=== PATIENT | male | born 1980 | race Caucasian/White ===

== ENCOUNTER → 2023-02-09 10:11 | Outpatient (BNVA) | payer SELFPAY | PROVIDERS: Visit Provider Nurse Practitioner | DX: F32.A Depression, unspecified (principal); F41.9 Anxiety disorder, unspecified | CPT/HCPCS: 80053; 84443; 85025 ==

== ENCOUNTER 2023-06-02 13:01 | Inpatient (IN) | payer BC, SELFPAY ==
[2023-06-02 13:09] VITALS: BP 131/87; PULSE 74; RESP 16; TEMP 37.1; O2SAT 91; BMI 23.1
--- NOTE | 2023-06-02 13:18 | ECG_ITS ---
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 [id number]
--- NOTE | 2023-06-02 13:22 | ED.C_ITS ---
HPI - Psych 2 General: Chief Complaint: Psychiatric Symptoms Stated Complaint: SI Time Seen by Provider: 06/02/23 13:03 Source: patient Mode of arrival: ambulatory Limitations: no limitations History of Present Illness: 42-year-old male states he has been karen rely depressed states he is went through a recent break-up and he is wanting to just end it all and is actively suicidal he states that yesterday around noon he had taken a bottle for Tylenol PM and attempt to kill himself. States he did vomit once yesterday has had some slight chest pain denies any worsening improving factors Associated symptoms: Reports depression and suicidal ideation Review of Systems 2 Const: Denies: fever(s), chills, body aches or change in appetite ENMT: Denies: throat pain or dental pain Card: Denies: chest pain Resp: Denies: dyspnea GI: Denies: abdominal pain, nausea, vomiting or diarrhea Musc: Denies: neck pain or back pain Skin/Breast: Denies: rash Neuro: Denies: headache(s) Psych: Reports: depression and suicidal ideation PFSH ED 2 PFSH: Family History Father Heart disease Diabetes mellitus, type 2 Family/Other Breast cancer paternal aunt Grandfather Heart disease paternal Mother Psychiatric illness Other Atrial fibrillation Denies family history of Clotting disorder Chronic kidney disease (CKD) Thyroid disease Stroke Social History Smoking and tobacco/nicotine status: current every day tobacco/nicotine user cigarettes Quit status (tobacco/nicotine): has tried quititng Physical Exam 2 Const: COMMON NORMALS: no acute distress, patient oriented x3 and healthy appearing HENMT: COMMON NORMALS: normocephalic and atraumatic HEAD & SCALP: n ormocephalic and atraumatic Neck/C-Spine: COMMON NORMALS: full ROM and supple Chest: COMMONS NORMALS: normal inspection of the chest and normal palpation of entire chest wall Resp: COMMON NORMALS: normal respiratory effort, No retractions, No use of accessory muscles and clear to auscultation bilaterally AUSCULTATION: clear to auscultation bilaterally Cardio: COMMON NORMALS: regular rate, regular rhythm and No murmurs present (Cardio) RATE: regular rate RHYTHM: regular rhythm Extremity: COMMON NORMALS: normal to inspection and full ROM Neuro: COMMON NORMALS: patient oriented x3, moves all extremities and no focal motor deficits Psych: COMMON NORMALS: mental status grossly normal, Normal thought process present and cooperative MOOD & AFFECT: Yes depressed mood THOUGHT PROCESS: Normal thought process present THOUGHT CONTENT: Yes Suicidality present Skin: COMMON NORMALS: no rashes or lesions noted and no wounds GENERAL SKIN EXAM: no rashes or lesions noted Course 2 Vital Signs: Vital signs: Vital Signs Temperature 98.8 F 06/02/23 13:09 Pulse Rate 74 06/02/23 13:09 Respiratory Rate 16 06/02/23 13:09 Blood Pressure 131/87 06/02/23 13:09 Pulse Oximetry 91 06/02/23 13:09 Oxygen Delivery Me thod Room Air 06/02/23 13:09 MDM - Psych Medical Decision Making Patient presents here with suicidal ideations patient told differing stories about his possible Tylenol overdose Tylenol level here is negative no signs of him taking a lethal level he had some chest pain troponin here is negative no signs of ACS patient is on a 6-hour hold I spoke to psychiatrist and will admit at this time. Medical Records I reviewed the patient's medical records. Lab Data I reviewed the patient's lab results. 06/02/23 13:36 06/02/23 13:36 Laboratory Results WBC 10.40 10^3/uL (3.29-11.43) 06/02/23 13:36 RBC 5.15 10^6/uL (3.85-5.65) 06/02/23 13:36 Hgb 14.90 g/dL (11.27-16.99) 06/02/23 13:36 Hct 46.3 % (37-53) 06/02/23 13:36 MCV 89.9 fl (82-101) 06/02/23 13:36 MCH 28.9 pg (27-33) 06/02/23 13:36 MCHC 32.2 g/dL (30-55) 06/02/23 13:36 RDW 12.7 % (12.1-15.1) 06/02/23 13:36 Plt Count 313 10^3/cmm (157-399) 06/02/23 13:36 MPV 10.0 fL (7.4-10.4) 06/02/23 13:36 Neut % (Auto) 74.7 % 06/02/23 13:36 Lymph % (Auto) 18.0 % 06/02/23 13:36 Douglas % (Auto) 5.7 % 06/02/23 13:36 Eos % (Auto) 0.8 % 06/02/23 13:36 Baso % (Auto) 0.3 % 06/02/23 13:36 Neut # (Auto) 7.78 10^3/uL (1.8-7.7) H 06/02/23 13:36 Lymph # (Auto) 1.9 10^3/uL (0.8-4.8) 06/02/23 13:36 Douglas # (Auto) 0.6 10^3/uL (0.2-0.9) 06/02/23 13:36 Eos # (Auto) 0.1 10^3/uL (0.0-0.8) 06/02/23 13:36 Baso # (Auto) 0.0 10^3/uL (0.0-0.1) 06/02/23 13:36 Nucleated RBC % (auto) 0 % 06/02/23 13:36 Nucleated RBCs # 0.0 /100WBC 06/02/23 13:36 PT 13.40 SECONDS (12.1-14.9) 06/02/23 13:36 INR 0.99 (0.8-1.2) 06/02/23 13:36 Sodium 137 mmol/L (136-145) 06/02/23 13:36 Potassium 4.2 mmol/L (3.5-5.1) 06/02/23 13:36 Chloride 103 mmol/L (98-107) 06/02/23 13:36 Carbon Dioxide 22 mmol/L (22-29) 06/02/23 13:36 Anion Gap 16.2 (5-19) 06/02/23 13:36 BUN 17 mg/dL (6-20) 06/02/23 13:36 Creatinine 0.9 mg/dL (0.7-1.2) 06/02/23 13:36 GFR Calculation 93.0 mL/min (90-130) 06/02/23 13:36 Glucose 112 mg/dL (65-115) 06/02/23 13:36 Calculated Osmolality 286 mOsm/kg (285-295) 06/02/23 13:36 Calcium 8.9 mg/dL (8.5-10.5) 06/02/23 13:36 Total Bilirubin 0.3 mg/dL (0.15-1.2) 06/02/23 13:36 AST 25 U/L (0-40) 06/02/23 13:36 ALT 32 U/L (0-41) 06/02/23 13:36 Alkaline Phosphatase 85 U/L (40-130) 06/02/23 13:36 Troponin T Baseline < 6 ng/L (0-15) 06/02/23 13:36 Total Protein 8.0 g/dL (6.6-8.7) 06/02/23 13:36 Albumin 4.5 g/dL (3.5-5.2) 06/02/23 13:36 Globulin 3.5 g/dL (1.3-4.6) 06/02/23 13:36 Salicylates < 0.3 mg/dL (3-10) L 06/02/23 13:36 Urine Opiates Screen Negative ng/mL (Negative) 06/02/23 13:26 Acetaminophen < 5.0 ug/mL (10-30) L 06/02/23 13:36 Ur Barbiturates Screen Negative ng/mL (Negative) 06/02/23 13:26 Ur Phencyclidine Scrn Negative ng/mL (Negative) 06/02/23 13:26 Ur Amphetamines Screen Negative ng/mL (Negative) 06/02/23 13:26 U Benzodiazepines Scrn Negative ng/mL (Negative) 06/02/23 13:26 Urine Cocaine Screen Negative ng/mL (Negative) 06/02/23 13:26 U Marijuana (THC) Screen Negative ng/mL (Negative) 06/02/23 13:26 Ethyl Alcohol < 10 mg/dL (0-10) 06/02/23 13:36 No radiology studies performed this visit EKG Data EKG 1: I personally reviewed and interpreted this EKG as follows: EKG interpretation date: 06/02/23 EKG interpretation time: 13:18 Interpretation: nsr hr [address] or t wave abnormalities qrs 89 qtc 409 Discharge Plan Discharge Patient Disposition: Admitted As Inpatient Clinical Impression: Suicidal ideation Condition: Stable Prescriptions: No Action Tylenol PM Extra Strength 25-500 mg Tablet 60 tab PO .ONE TIME DOSE Remeron 30 mg tablet 30 mg PO BEDTIME Referrals: Yessy Morales FNP [Primary Care Provider] - Coding Level of Care Code ED Ged Instructor for Yuliana Ibarra
--- NOTE | 2023-06-02 13:30 | PC.PHAR ---
PT STATES HE ONLY TAKES REMERON 30MG HS-PT STATES ON 06/01/23 HE TOOK 60 TYLENOL PMS
--- NOTE | 2023-06-02 13:40 | XR_ITS ---
WS: [id number] Portable AP upright chest, 06/02/2023 Clinical Data: cp Comparison: None Findings: No nodules, masses or effusions are seen. The heart is normal. The pulmonary vascularity is not increased. No pneumonia or pneumothorax is seen. Impression: Negative chest.
--- NOTE | 2023-06-02 13:47 | PC.NURSE ---
96 hour hold rights read and reviewed with patient. Patient verbalized understandings. Copy of rights given to patient.
[2023-06-02 13:48] LABS: Basophils % 0.3 %; Eosinophils # 0.1 10^3/uL (0.0-0.8); Eosinophils % 0.8 %; Hematocrit 46.3 % (37-53); Lymphocytes # 1.9 10^3/uL (0.8-4.8); Mean Corpuscular HGB Conc 32.2 g/dL (30-55); Mean Corpuscular Hemoglobin 28.9 pg (27-33); Mean Corpuscular Volume 89.9 fl (82-101); Monocytes # 0.6 10^3/uL (0.2-0.9); Monocytes % 5.7 %; Neutrophils # 7.78 10^3/uL (1.8-7.7); Neutrophils % 74.7 %; Nucleated Red Blood Cells % 0 %; Platelet Count 313 10^3/cmm (157-399); Red Blood Count 5.15 10^6/uL (3.85-5.65); Red Cell Distribution Width 12.7 % (12.1-15.1)
[2023-06-02 13:59] LABS: Amphetamines Screen Urine Negative (Negative); Barbiturates Screen Urine Negative (Negative); Benzodiazepines Screen Urine Negative (Negative); Cocaine Screen Urine Negative (Negative); Opiate Screen Urine Negative (Negative); PCP Screen Urine Negative (Negative); THC Screen Urine Negative (Negative)
[2023-06-02 14:08] LABS: INR 0.99 (0.8-1.2)
[2023-06-02 14:17] LABS: Alanine Aminotransferase 32 U/L (0-41); Albumin Level 4.5 g/dL (3.5-5.2); Alkaline Phosphatase 85 U/L (40-130); Anion Gap 16.2 (5-19); Aspartate Amino Transferase 25 U/L (0-40); Blood Urea Nitrogen 17 mg/dL (6-20); Calcium 8.9 mg/dL (8.5-10.5); Carbon Dioxide 22 mmol/L (22-29); Chloride 103 mmol/L (98-107); Creatinine Clr Calc Pharmacy 142.7164; Globulin 3.5 g/dL (1.3-4.6); Glucose 112 mg/dL (65-115); Osmolality Calculated 286 mOsm/kg (285-295); Potassium 4.2 mmol/L (3.5-5.1); Sodium 137 mmol/L (136-145); Total Bilirubin 0.3 mg/dL (0.15-1.2); Troponin(5th) Baseline < 6 ng/L (0-15)
[2023-06-02 14:20] LABS: Acetaminophen < 5.0 ug/mL (10-30); Alcohol Level < 10 mg/dL (0-10); Salicylate < 0.3 mg/dL (3-10)
[2023-06-02 15:57] VITALS: BP 149/102; PULSE 93; RESP 18; TEMP 36.8; O2SAT 99
[2023-06-02 16:03] VITALS: RESP 16; O2SAT 100
[2023-06-02 16:16] LABS: Troponin 5 2HR 7.06 ng/L (0-15); Troponin 5 2HR Delta 1.06001 ABS# (0-10)
[2023-06-02] MEDS: hyDROXYzine 25 mg Capsule 50 MG PO (16:17)
[2023-06-02] MEDS: nicotine 2 mg Gum BUCCAL ×2 (16:17→20:26)
--- NOTE | 2023-06-02 17:46 | PC.NURSE ---
Patient states he has been feeling depressed, suicidal, and paranoid since January and just can't go on living that way anymore. He states he has been taking tylenol PM excessively and recognized he was not wanting to live anymore and wanted to come get help before he did anything else. He listed several stressors since 2019 including his father passing away unexpectedly, 2 grandmothers passing, and a 4 year relationship with his girlfriend ending. He also endorses vh, reportedly seeing things coming out of the wall. However, he says he knows they aren't real. Patient stated he lives at a [facility] in [place] and that they all are very helpful, but that sometimes it can feel overwhelming. In the past he has went to a therapist in [place], [place], but it was over 10 years ago. He was also hospitalized over 10 years ago in [place], [place] and [place], [place]. Patient says he has a history of alcohol and drug abuse. He last drank on August 01, 2022 and says he had relapsed and received DWIs due to it. Patient says his primary reason for living are his 3 children, all 3 boys. However, he says he often feels they'd be better off without him. Patient also states he has a job at [employer] at this time and also takes Remeron 30mg, but feels it has been ineffective thus far. Very tearful throughout assessment.
[2023-06-02] MEDS: LORazepam 1 mg Tablet PO (18:31)
[2023-06-02] MEDS: acetaminophen 325 mg Tablet 650 MG PO (20:25)
[2023-06-02] MEDS: OLANZapine 5 mg ODT PO (20:26)
[2023-06-02] MEDS: trazodone 50 mg Tablet PO (20:26)
[2023-06-02 20:43] VITALS: BP 123/83; PULSE 89; RESP 18; TEMP 36.9; O2SAT 95
[2023-06-02 21:32] LABS: Troponin 5 6HR 9.12 ng/L (0-15); Troponin 5 6HR Delta 3.12001 ng/L (0-12)
[2023-06-03 06:00] VITALS: BP 109/63; PULSE 81; RESP 16; TEMP 37; O2SAT 98
--- NOTE | 2023-06-03 06:22 | PC.NURSE ---
PT RECEIVED TRAZODONE 50 MG FORR INSOMNIA AND ZYDIS 5 MG FOR INCREASED REPORTS OF ANXIETY AND PANIC FEELING. MEDICATIONS DEEMED EFFECTIVE PT WAS ABLE TO REST AND SLEPT APPROXIMATELY 8-9 HOURS THIS SHIFT.
[2023-06-03] MEDS: hyDROXYzine 25 mg Capsule 50 MG PO ×2 (10:27→18:29)
[2023-06-03] MEDS: OLANZapine 5 mg ODT PO ×2 (10:54→17:22)
[2023-06-03] MEDS: nicotine 2 mg Gum BUCCAL ×3 (10:55→19:04)
--- NOTE | 2023-06-03 13:17 | PC.NURSE ---
At 1027, patient states he feels anxious and sad. States he is depressed, he doesn't want to hurt himself, but doesn't care if he live any longer. Does contract for safety on the unit. Vistaril 50mg given PO. At around 1100, patient continues pacing and is almost tearful, states he just feels awful and doesn't know how to manage his feelings. Zyperxa given at this time. At 1130, patient appears calmer and is no longer pacing. Patient talking with other patients. At 1320, patient resting in bed with eyes closed.
[2023-06-03 14:00] VITALS: BP 116/68; PULSE 89; RESP 20; TEMP 36.8; O2SAT 98
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
[2023-06-03] MEDS: fluoxetine 20 mg Capsule PO (14:33)
[2023-06-03] MEDS: trazodone 50 mg Tablet PO (20:18)
[2023-06-03 20:25] VITALS: BP 127/72; PULSE 83; RESP 18; TEMP 36.6; O2SAT 99
[2023-06-04 06:00] VITALS: BP 115/73; PULSE 74; RESP 16; TEMP 36.8; O2SAT 98
[2023-06-04] MEDS: nicotine 21 mg Patch 1 PATCH TRANSDERMA (10:14)
[2023-06-04] MEDS: fluoxetine 20 mg Capsule PO (10:14)
[2023-06-04] MEDS: hyDROXYzine 25 mg Capsule 50 MG PO ×2 (11:36→17:38)
--- NOTE | 2023-06-04 13:11 | P.NPUPN_ITS ---
Subjective NPU 2 Subjective: 42-year-old male with a history of major depressive disorder admitted with severe depression and an overdose on Tylenol with suicidal intent. Patient reported continued depression. He had reported that he had slept better when receiving trazodone and reported continued feelings of hopelessness. He had reported that he continued to feel sad and reported that he continued to think about his children. Patient was less isolative on the milieu today. He denied any psychosis did not endorse any manic symptoms. He reported no worsening mood with the absence of mirtazapine at this time. He continued to report diminished appetite. Mental Status Exam 2 MSE Comments: Patient is a very tall male who appeared his stated age who appeared cooperative but extremely dysphoric on interview. He was alert and oriented to person place and time. There was prominent psychomotor retardation. His speech was monotone in quality and normal in productivity and rate. His mood was endorsed as depressed. His affect was restricted in range. He endorsed suicidal ideation with the plan to overdose on meds. He denied any homicidal ideation. He did not appear to be responding internal stimuli. There was no evidence of delusional thinking. He was alert and oriented to person place time and situation. His attention span appeared intact. His insight was limited. His judgment is poor. His impulse control appeared poor. His recent and remote memory appeared grossly intact. Vitals/I&O/Wt Last Vital Signs Temp 98.2 F 06/04/23 06:00 Pulse 74 06/04/23 06:00 Resp 16 06/04/23 06:00 BP 115/73 06/04/23 06:00 Pulse Ox 98 06/04/23 06:00 O2 Del Method Room Air 06/04/23 06:00 Weight last 48 hrs Weight 95.708 kg Data NPU 06/02/23 13:36 06/02/23 13:36 A&P Assessment and plan (1) MDD (major depressive disorder), recurrent severe, without psychosis: (2) Panic attacks: Plan 42-year-old male admitted after an overdose on Tylenol with current suicidal ideation currently on a 96-hour hold with severe depression. Patient would likely benefit from acute psychiatric treatment at this time. 1. ?Encourage individual, group and milieu therapy. 2. Recommend sober living treatment at the highest level of care to which the patient is willing to commit. 3. Continue q-15 minute checks for safety 4. Continue prozac 20mg daily, add trazodone 50mg at night routinely. 5. Will attempt to gather collateral information. Involuntary Hold Information 2 96 Hour Hold: 96 Hour Involuntary Admission: Yes 96 Hour Hold Ending Date: 06/08/23 96 Hour Hold Ending Time: 13:13 Attestations NPU 2 Medical Necessity Statement*: Inpatient hospitalization is medically necessary and deemed to be the clinically appropriate intervention at this time.? Medications will be initiated and adjusted as clinically indicated.? The patient?s likely length of stay is 5-7 days.? Coding Level of Care Code Acute Code for Chg Fwd Diagnoses MDD (major depressive disorder), recurrent severe, without psychosis F33.2 Panic attacks F41.0
[2023-06-04 14:00] VITALS: BP 147/82; PULSE 91; RESP 20; TEMP 36.6; O2SAT 99
[2023-06-04] MEDS: OLANZapine 5 mg ODT PO (15:46)
[2023-06-04] MEDS: LORazepam 1 mg Tablet PO (16:56)
[2023-06-04 20:31] VITALS: BP 125/81; PULSE 88; RESP 18; TEMP 36.4; O2SAT 99
[2023-06-04] MEDS: trazodone 50 mg Tablet PO (21:46)
[2023-06-05 06:00] VITALS: BP 136/74; PULSE 83; RESP 16; TEMP 36.4; O2SAT 98
[2023-06-05] MEDS: fluoxetine 20 mg Capsule PO (09:10)
[2023-06-05] MEDS: hyDROXYzine 25 mg Capsule 50 MG PO ×2 (09:13→17:16)
[2023-06-05] MEDS: OLANZapine 5 mg ODT PO ×2 (10:07→20:15)
[2023-06-05 14:00] VITALS: BP 110/62; PULSE 70; RESP 16; TEMP 36.7; O2SAT 96
[2023-06-05] MEDS: nicotine 2 mg Gum BUCCAL (16:07)
--- NOTE | 2023-06-05 16:33 | P.NPUPN_ITS ---
Subjective NPU 2 Subjective: 42-year-old male with a history of major depressive disorder admitted with severe depression and an overdose on Tylenol with suicidal intent. The patient had reported that his ears were ringing. He had reported that he had had these problems in the past at home to and that it was not completely related to the Prozac that he had started. He continued to report that he missed his sons and stated that he felt extremely depressed. He continued to report feeling hopeless and continued to report having anxiety attacks. He remained somewhat tearful and isolative on the milieu. He denied any manic symptoms. He denied any psychotic symptoms. Patient continued to report that he felt better off being . For Mental Status Exam 2 MSE Comments: Patient is a very tall male who appeared his stated age who appeared cooperative and tearful throughout the interview. He was alert and oriented to person place and time. There was prominent psychomotor retardation. His speech was monotone in quality and normal in productivity and rate. His mood remained depressed. His affect was restricted in range. He endorsed suicidal ideation with the plan to overdose on meds. He denied any homicidal ideation. He did not appear to be responding internal stimuli. There was no evidence of delusional thinking. He was alert and oriented to person place time and situation. His attention span appeared intact. His insight was limited. His judgment is poor. His impulse control appeared poor. His recent and remote memory appeared grossly intact. Vitals/I&O/Wt Last Vital Signs Temp 98.1 F 06/05/23 14:00 Pulse 70 06/05/23 14:00 Resp 16 06/05/23 14:00 BP 110/62 06/05/23 14:00 Pulse Ox 96 06/05/23 14:00 O2 Del Method Room Air 06/05/23 06:00 Weight last 48 hrs Weight 95.708 kg Data NPU 06/02/23 13:36 06/02/23 13:36 A&P Assessment and plan (1) MDD (major depressive disorder), recurrent severe, without psychosis: (2) Panic attacks: Plan 42-year-old male admitted after an overdose on Tylenol with current suicidal ideation currently on a 96-hour hold with severe depression. Patient would likely benefit from acute psychiatric treatment at this time. 1. ?Encourage individual, group and milieu therapy. 2. Recommend sober living treatment at the highest level of care to which the patient is willing to commit. 3. Continue q-15 minute checks for safety 4. Continue prozac 20mg daily, Continue trazodone 50mg at night routinely. 5. Will attempt to gather collateral information. Continue to monitor for tinnitus. Involuntary Hold Information 2 96 Hour Hold: 96 Hour Involuntary Admission: Yes 96 Hour Hold Ending Date: 06/08/23 96 Hour Hold Ending Time: 13:13 Attestations NPU 2 Medical Necessity Statement*: Inpatient hospitalization is medically necessary and deemed to be the clinically appropriate intervention at this time.? Medications will be initiated and adjusted as clinically indicated.? The patient?s likely length of stay is 5-7 days.? Coding Level of Care Code Acute Code for [facility] Fwd Diagnoses MDD (major depressive disorder), recurrent severe, without psychosis F33.2 Panic attacks F41.0
[2023-06-05 20:15] VITALS: BP 148/85; PULSE 83; RESP 18; TEMP 36.5; O2SAT 98
[2023-06-05] MEDS: trazodone 50 mg Tablet PO (20:15)
[2023-06-06 06:00] VITALS: BP 124/74; PULSE 67; RESP 16; TEMP 35.7; O2SAT 98
--- NOTE | 2023-06-06 06:32 | PC.NURSE ---
PT WAS GIVEN ZYDIS 5 MG FOR COMPLAINTS OF INCREASED ANXIETY AND TRAZODONE 50 MG FOR INSOMNIA EARLIER IN THE SHIFT REQUESTED. MEDICATIONS DEEMED EFFECTIVE AT THIS TIME. PT HAS HAD NO OTHER COMPLAINTS OF ANXIETY AND HAS SLEPT APPROXIMATELY 9-10 HOURS THIS SHIFT. PT CURRENTLY RESTING WITH EYES CLOSED. SUPPORT VOICED.
[2023-06-06] MEDS: fluoxetine 20 mg Capsule PO (10:41)
[2023-06-06] MEDS: nicotine 2 mg Gum BUCCAL ×3 (11:08→19:34)
[2023-06-06] MEDS: OLANZapine 5 mg ODT PO ×2 (11:38→18:22)
[2023-06-06 14:00] VITALS: BP 127/79; PULSE 84; RESP 16; TEMP 36.3; O2SAT 96
[2023-06-06] MEDS: ibuprofen 600 mg Tablet PO (16:08)
--- NOTE | 2023-06-06 16:31 | P.NPUPN_ITS ---
Subjective NPU 2 Subjective: 42-year-old male with a history of major depressive disorder admitted with severe depression and an overdose on Tylenol with suicidal intent. He continued to appear tearful on the milieu. He had reported that the ringing in his ears was constant. He had requested to be tried on a different medication as he had expressed some fear that Prozac may have been causing him this problem. Patient continued to endorse feelings of hopelessness. He had continued to report feeling sad and stated that he missed his children. He continued to state that he wanting to kill himself. He had reported having frequent problems with anxiety attacks here and at home. Patient was able to attend groups. Mental Status Exam 2 MSE Comments: Patient is a very tall male who appeared his stated age who appeared cooperative and tearful throughout the interview. He was alert and oriented to person place and time. There was prominent psychomotor retardation. His speech was monotone in quality and normal in productivity and rate. His mood remained depressed. His affect was restricted in range. He endorsed suicidal ideation with no plan illicited. He denied any homicidal ideation. He did not appear to be responding internal stimuli. There was no evidence of delusional thinking. He was alert and oriented to person, place, time and situation. His attention span appeared intact. His insight was limited. His judgment is poor. His impulse control appeared poor. His recent and remote memory appeared grossly intact. Vitals/I&O/Wt Last Vital Signs Temp 97.3 F L 06/06/23 14:00 Pulse 84 06/06/23 14:00 Resp 16 06/06/23 14:00 BP 127/79 06/06/23 14:00 Pulse Ox 96 06/06/23 14:00 O2 Del Method Room Air 06/06/23 14:00 Data NPU 06/02/23 13:36 06/02/23 13:36 A&P Assessment and plan (1) MDD (major depressive disorder), recurrent severe, without psychosis: (2) Panic attacks: Plan 42-year-old male admitted after an overdose on Tylenol with current suicidal ideation currently on a 96-hour hold with severe depression. Patient would likely benefit from acute psychiatric treatment at this time. 1. ?Encourage individual, group and milieu therapy. 2. Recommend sober living treatment at the highest level of care to which the patient is willing to commit. 3. Continue q-15 minute checks for safety 4. Discontinue Prozac today. Trial of cymbalta 30mg daily. Monitor for tinnitus. 5. Will attempt to gather collateral information. Involuntary Hold Information 2 96 Hour Hold: 96 Hour Involuntary Admission: Yes 96 Hour Hold Ending Date: 06/08/23 96 Hour Hold Ending Time: 13:13 Attestations NPU 2 Medical Necessity Statement*: Inpatient hospitalization is medically necessary and deemed to be the clinically appropriate intervention at this time.? Medications will be initiated and adjusted as clinically indicated.? The patient?s likely length of stay is 5-7 days.? Coding Level of Care Code Acute Code for g Fwd Diagnoses MDD (major depressive disorder), recurrent severe, without psychosis F33.2 Panic attacks F41.0
[2023-06-06 20:10] VITALS: BP 138/79; PULSE 77; RESP 18; TEMP 36.4; O2SAT 99
[2023-06-06] MEDS: trazodone 50 mg Tablet PO (20:15)
[2023-06-07 06:00] VITALS: BP 120/75; PULSE 83; RESP 15; TEMP 36.5; O2SAT 98
[2023-06-07] MEDS: duloxetine 30 mg Capsule PO (09:11)
[2023-06-07] MEDS: nicotine 2 mg Gum BUCCAL ×4 (09:11→18:12)
[2023-06-07] MEDS: hyDROXYzine 25 mg Capsule 50 MG PO (09:11)
[2023-06-07] MEDS: OLANZapine 5 mg ODT PO (12:12)
--- NOTE | 2023-06-07 12:13 | PC.NURSE ---
Patient visibly anxious, administered zyprexa 5mg ODT
[2023-06-07 14:00] VITALS: BP 129/84; PULSE 82; RESP 20; TEMP 36.6; O2SAT 97
--- NOTE | 2023-06-07 16:29 | W.PM.NPUPNS ---
Subjective NPU Subjective: 42-year-old male with a history of major depressive disorder admitted with severe depression and an overdose on Tylenol with suicidal intent. Patient continued endorse depression. He had continued to isolate himself on the milieu but was able to attend groups briefly. He had reported significant panic attacks. He had continued to report ringing in his years but stated that it had been better since last night. He had been agreeable to stopping Prozac and beginning Cymbalta to target depression. He had continued to report that he missed his family. He had stated that he had no cravings for alcohol and had reported compliance with the rules at the [address] in [place] but stated that he was hopeful that he would be closer to his children who were in [place]. Mental Status Exam MSE Comments: Patient is a very tall male who appeared his stated age who appeared cooperative and continued to be tearful throughout the interview. He was alert and oriented to person place and time. There was prominent psychomotor retardation. His speech was monotone in quality and normal in productivity and rate. His mood remained depressed. His affect remained flat. He endorsed suicidal ideation with no plan illicited. He denied any homicidal ideation. He did not appear to be responding internal stimuli. There was no evidence of delusional thinking. He was alert and oriented to person, place, time and situation. His attention span appeared intact. His insight was limited. His judgment is poor. His impulse control appeared poor. His recent and remote memory appeared grossly intact. Vitals/I&O/Wt Last Vital Signs Temp 97.7 F 06/07/23 06:00 Pulse 83 06/07/23 06:00 Resp 15 06/07/23 06:00 BP 120/75 06/07/23 06:00 Pulse Ox 98 06/07/23 06:00 O2 Del Method Room Air 06/06/23 20:10 Data NPU 06/02/23 13:36 06/02/23 13:36 A&P Assessment and plan (1) MDD (major depressive disorder), recurrent severe, without psychosis: (2) Panic attacks: Plan 42-year-old male admitted after an overdose on Tylenol with current suicidal ideation currently on a 96-hour hold with severe depression. Patient would likely benefit from acute psychiatric treatment at this time. 1. ?Encourage individual, group and milieu therapy. 2. Recommend sober living treatment at the highest level of care to which the patient is willing to commit. 3. Continue q-15 minute checks for safety 4. Cymbalta 30mg daily for depression and anxiety. 5. Will attempt to gather collateral information. 6. 21 day hold filed. Involuntary Hold Information 96 Hour Hold: 96 Hour Involuntary Admission: Yes 96 Hour Hold Ending Date: 06/08/23 96 Hour Hold Ending Time: 13:13 Attestations NPU Medical Necessity Statement*: Inpatient hospitalization is medically necessary and deemed to be the clinically appropriate intervention at this time.? Medications will be initiated and adjusted as clinically indicated.? The patient?s likely length of stay is 5-7 days.? Coding Level of Care Code Acute Code for [facility] Fwd Diagnoses MDD (major depressive disorder), recurrent severe, without psychosis F33.2 Panic attacks F41.0
[2023-06-07] MEDS: haloperidol 5 mg Tablet PO ×2 (16:40→21:05)
--- NOTE | 2023-06-07 17:06 | PC.NURSE ---
Administered Haldol 5mg PO to patient for irrational thoughts of not wanting to be alive any more. Patient reports that he would typically sit with the thoughts and have the urge to bang his head into a wall but decided to tell staff. Patient stated that asking for help is new to him.
[2023-06-07] MEDS: trazodone 50 mg Tablet PO (21:05)
[2023-06-07 21:23] VITALS: BP 121/77; PULSE 80; RESP 18; TEMP 36.6; O2SAT 98
[2023-06-08 06:00] VITALS: BP 108/71; PULSE 73; RESP 17; TEMP 36.7; O2SAT 97
[2023-06-08] MEDS: duloxetine 30 mg Capsule PO (08:56)
[2023-06-08] MEDS: nicotine 2 mg Gum BUCCAL ×2 (08:56→15:56)
--- NOTE | 2023-06-08 09:13 | PC.NURSE ---
During nursing shift assessment, patient stated that he slept well, but that he had weird dreams. Patient states that the haldol is working well for him in decreasing thoughts of no longer wanting to live. Currently denies SI, STEVEN, AVH. Patient cooperative.
--- NOTE | 2023-06-08 12:18 | PC.NURSE ---
Patient was served paperwork for court on 06/09/23 for 21 day hold. Patient handled this well. Patient denied any questions.
[2023-06-08 14:00] VITALS: RESP 16
[2023-06-08] MEDS: haloperidol 5 mg Tablet PO ×2 (15:56→21:07)
--- NOTE | 2023-06-08 16:18 | W.PM.NPUPNS ---
Subjective NPU Subjective: Patient presented today reporting that he is doing okay. We discussed the 21-day hold hearing tomorrow and how that works. We discussed not feeling there was a need for a significant extension and that we would discharge him as soon as it was appropriate. He reports that he believes he can [facility] [employer] [facility] and he denied side effects to the medication. We discussed a plan to meet about the hearing again tomorrow and decide how to proceed. Mental Status Exam MSE Comments: This is a tall well-nourished well-developed white male in hospital scrubs with limited grooming but appropriate eye contact. No abnormal movements except for psychomotor retardation. Cooperative with exam in mild distress. Speech was normal rate and volume. Mood described as a little better, affect slightly subdued. Thought process was more organized. Thought content: Patient reported resolving suicidal but denied homicidal ideation, there were no delusions reported or noted, he denied any auditory or visual hallucinations. Attention and concentration appear to be improving and memory appeared reliable but none were formally tested. He was alert and oriented x 3. Insight and judgment were limited impulse control poor. Vitals/I&O/Wt Last Vital Signs Temp 98.1 F 06/08/23 06:00 Pulse 73 06/08/23 06:00 Resp 17 06/08/23 06:00 BP 108/71 06/08/23 06:00 Pulse Ox 97 06/08/23 06:00 O2 Del Method Room Air 06/08/23 06:00 Data NPU 06/02/23 13:36 06/02/23 13:36 A&P Assessment and plan (1) MDD (major depressive disorder), recurrent severe, without psychosis: (2) Panic attacks: Plan 42-year-old male admitted after an overdose on Tylenol with current suicidal ideation currently on a 96-hour hold with severe depression. Patient would likely benefit from acute psychiatric treatment at this time. 1. ?Encourage individual, group and milieu therapy. 2. Recommend sober living treatment at the highest level of care to which the patient is willing to commit. 3. Continue q-15 minute checks for safety 4. Cymbalta 30mg daily for depression and anxiety. 5. Will attempt to gather collateral information. 6. 21 day hold filed. Hearing tomorrow @1400. Involuntary Hold Information 96 Hour Hold: 96 Hour Involuntary Admission: Yes 96 Hour Hold Ending Date: 06/08/23 96 Hour Hold Ending Time: 13:13 Attestations NPU Medical Necessity Statement*: Inpatient hospitalization is medically necessary and the clinically appropriate intervention at this time.? Medications will be initiated and adjusted as clinically indicated.? The patient?s likely length of stay is 4-6 days.? Coding Level of Care Code Acute Code for g Fwd Diagnoses MDD (major depressive disorder), recurrent severe, without psychosis F33.2 Panic attacks F41.0
[2023-06-08] MEDS: trazodone 50 mg Tablet PO (21:07)
[2023-06-08 21:17] VITALS: BP 116/71; PULSE 85; RESP 16; TEMP 36.2; O2SAT 98
--- NOTE | 2023-06-08 22:54 | PC.NURSE ---
IIN BED RESTING AROUSES TO VOICE. DENIES PAIN. DENIES SI/H AND AVH AT THIS TIME. RATES ANXIETY AND DEPRESSION 09/24. REQUESTS MEDS FOR ANXIETY AND SLEEP. PT INFORMED THIS RN THAT HE ONLY WANTS TO TAKE HALDOL BECAUSE THAT'S WHAT IS WORKING FOR ME NOW. PT WAS GIVEN TRAZODONE 50 MG ORDERED FOR INSOMNIA AND HALDOL 5 MG ORDERED FOR INCREASED ANXIETY. ALL QUESTIONS WERE ANSWERED AND SUPPORT WAS VOICED.
[2023-06-09 06:00] VITALS: RESP 16
--- NOTE | 2023-06-09 06:35 | PC.NURSE ---
Did not obtain vitals. RR documented. CN notified.
--- NOTE | 2023-06-09 06:38 | PC.NURSE ---
PT RECEIVED PRN MEDICATIONS THIS SHIFT. PT WAS GIVEN TRAZODONE FOR INSOMNIA AND HALDOL FOR INCREASED ANXIETY. PT WAS ABLE TO REST AND SLEPT APPROXIMATELY 9-10 HOUR THIS SHIFT. PT HAD NO OTHER COMPLAINTS OF ANXIETY THROUGH OUT THE NIGHT. MEDICATIONS ARE DEEMED EFFECTIVE. PT CONTINUES TO REST WITH EYES CLOSED WITH NO DISTRESS NOTED AT THIS TIME.
[2023-06-09] MEDS: duloxetine 30 mg Capsule PO (08:56)
[2023-06-09 14:00] VITALS: BP 130/76; PULSE 87; RESP 16; TEMP 36.5; O2SAT 97
[2023-06-09] MEDS: nicotine 2 mg Gum BUCCAL ×3 (15:04→20:19)
[2023-06-09] MEDS: hyDROXYzine 25 mg Capsule 50 MG PO (15:04)
--- NOTE | 2023-06-09 15:56 | W.PM.NPUPNS ---
Subjective NPU Subjective: Patient presented today reporting that he was feeling a little better. He did not contest the 21-day hold and did not go to the hearing. We discussed his thought that it is possible that the Remeron that he was taking contributed to those thoughts he was having. He reports that he felt like when the medications were switched that a cloud lifted and he just very quickly felt much better. We discussed a plan to evaluate him for few days now that he is reporting a resolution of his suicidal thoughts and a likely plan for discharge at the beginning of the week. Mental Status Exam MSE Comments: This is a tall well-nourished well-developed white male in hospital scrubs with limited grooming but appropriate eye contact. No abnormal movements except for mild psychomotor retardation. Cooperative with exam in mild distress. Speech was normal rate and volume. Mood described as a little better, affect slightly subdued. Thought process was more organized. Thought content: Patient denied suicidal or homicidal ideation, there were no delusions reported or noted, he denied any auditory or visual hallucinations. Attention and concentration appear to be improving and memory appeared reliable but none were formally tested. He was alert and oriented x 3. Insight and judgment were limited impulse control poor. Vitals/I&O/Wt Last Vital Signs Temp 97.7 F 06/09/23 14:00 Pulse 87 06/09/23 14:00 Resp 16 06/09/23 14:00 BP 130/76 06/09/23 14:00 Pulse Ox 97 06/09/23 14:00 O2 Del Method Room Air 06/08/23 21:17 Data NPU 06/02/23 13:36 06/02/23 13:36 A&P Assessment and plan (1) MDD (major depressive disorder), recurrent severe, without psychosis: (2) Panic attacks: Plan 42-year-old male admitted after an overdose on Tylenol with current suicidal ideation currently on a 96-hour hold with severe depression. Patient would likely benefit from acute psychiatric treatment at this time. 1. ?Encourage individual, group and milieu therapy. 2. Recommend sober living treatment at the highest level of care to which the patient is willing to commit. 3. Continue q-15 minute checks for safety 4. Cymbalta 30mg daily for depression and anxiety. 5. Will attempt to gather collateral information. 6. 21 day hold filed. Hold granted today 06/09/2023. Involuntary Hold Information 96 Hour Hold: 96 Hour Involuntary Admission: Yes 96 Hour Hold Ending Date: 06/08/23 96 Hour Hold Ending Time: 13:13 Attestations NPU Medical Necessity Statement*: Inpatient hospitalization is medically necessary and the clinically appropriate intervention at this time.? Medications will be initiated and adjusted as clinically indicated.? The patient?s likely length of stay is 3-5 days.? Coding Level of Care Code Acute Code for [facility] Fwd Diagnoses MDD (major depressive disorder), recurrent severe, without psychosis F33.2 Panic attacks F41.0
[2023-06-09] MEDS: haloperidol 5 mg Tablet PO (20:19)
[2023-06-09] MEDS: trazodone 50 mg Tablet PO (20:19)
[2023-06-09 20:43] VITALS: BP 131/77; PULSE 75; RESP 18; TEMP 36.8; O2SAT 98
--- NOTE | 2023-06-10 04:51 | PC.NURSE ---
PT RECEIVED PRN MEDIATIONS THIS SHIFT FOR INCREASED ANXIETY AND INSOMNIA. PT WAS GIVEN TRAZODONE 50 MG AND HALDOL 5 MG. PT STATES THE HALDOL IS THE ONLY THAT WORKS FOR ME, SO PLEASE JUST GIVE ME THAT. MEDICATIONS DEEMED EFFECTIVE. PT WAS ABLE TO REST AND HAS HAD NO OTHER COMPLAINTS OF ANXIETY. PT HAS SLEPT APPROXIMATELY 8-9 HOURS THIS SHIFT. SUPPORT VOICED.
[2023-06-10 06:00] VITALS: BP 110/61; PULSE 59; RESP 18; TEMP 36.4; O2SAT 95
[2023-06-10] MEDS: duloxetine 30 mg Capsule PO (08:28)
[2023-06-10] MEDS: hyDROXYzine 25 mg Capsule 50 MG PO (10:54)
[2023-06-10] MEDS: nicotine 2 mg Gum BUCCAL ×4 (13:56→20:17)
[2023-06-10 14:00] VITALS: BP 120/73; PULSE 75; RESP 16; TEMP 36.5; O2SAT 96
--- NOTE | 2023-06-10 17:52 | W.PM.NPUPNS ---
Subjective NPU Subjective: Patient presented today reporting that he was feeling better each day. He reports that he is looking forward to returning to [facility] on Monday. We discussed him getting his medication before he leaves so there will be no problems. He was happy about the discharge and less than 48 hours and he denied any side effects to his medications. Mental Status Exam MSE Comments: This is a tall well-nourished well-developed white male in hospital scrubs with limited grooming but appropriate eye contact. No abnormal movements except for mild psychomotor retardation. Cooperative with exam in mild distress. Speech was normal rate and volume. Mood described as better, affect slightly subdued. Thought process was more organized. Thought content: Patient denied suicidal or homicidal ideation, there were no delusions reported or noted, he denied any auditory or visual hallucinations. Attention and concentration appear to be improving and memory appeared reliable but none were formally tested. He was alert and oriented x 3. Insight and judgment were limited impulse control poor. Vitals/I&O/Wt Last Vital Signs Temp 97.7 F 06/10/23 14:00 Pulse 75 06/10/23 14:00 Resp 16 06/10/23 14:00 BP 120/73 06/10/23 14:00 Pulse Ox 96 06/10/23 14:00 O2 Del Method Room Air 06/10/23 06:00 Data NPU 06/02/23 13:36 06/02/23 13:36 A&P Assessment and plan (1) MDD (major depressive disorder), recurrent severe, without psychosis: (2) Panic attacks: Plan 42-year-old male admitted after an overdose on Tylenol with current suicidal ideation currently on a 96-hour hold with severe depression. Patient would likely benefit from acute psychiatric treatment at this time. 1. ?Encourage individual, group and milieu therapy. 2. Recommend sober living treatment at the highest level of care to which the patient is willing to commit. 3. Continue q-15 minute checks for safety 4. Cymbalta 30mg daily for depression and anxiety. 5. Will attempt to gather collateral information. 6. 21 day hold filed. Hold granted 06/09/2023. Plan for discharge back to [facility] on Monday. Involuntary Hold Information 96 Hour Hold: 96 Hour Involuntary Admission: Yes 96 Hour Hold Ending Date: 06/08/23 96 Hour Hold Ending Time: 13:13 Attestations NPU Medical Necessity Statement*: Inpatient hospitalization is medically necessary and the clinically appropriate intervention at this time.? Medications will be initiated and adjusted as clinically indicated.? The patient?s likely length of stay is 2 days.? Coding Level of Care Code Acute Code for [facility] Fwd Diagnoses MDD (major depressive disorder), recurrent severe, without psychosis F33.2 Panic attacks F41.0
[2023-06-10 20:10] VITALS: BP 123/73; PULSE 76; RESP 16; TEMP 36.3; O2SAT 98
[2023-06-10] MEDS: trazodone 50 mg Tablet PO (20:17)
[2023-06-10] MEDS: haloperidol 5 mg Tablet PO (20:17)
--- NOTE | 2023-06-10 21:56 | PC.NURSE ---
PT APPEARS TO MORE UPBEAT WITH BRIGHTER AFFECT. PT DENIES SI/HI AND AVH AT THIS TIME. DENIES PAIN. RATES ANXIETY AND DEPRESSION 10/24. PT WAS GIVEN TRAZODONE 50 MG FOR SLEEP AND HALDOL 5 MG FOR INCREASED ANXIETY. ALL QUESTIONS ANSWERED AND SUPPORT VOICED.
[2023-06-11 06:00] VITALS: BP 111/70; PULSE 81; RESP 16; O2SAT 99
--- NOTE | 2023-06-11 06:29 | PC.NURSE ---
PT WAS GIVEN TRAZODONE 50 MG FOR SLEEP AND HALDOL 5MG FOR ANXIETY. MEDICATIONS DEEMED EFFECTIVE PT WAS ABLE TO SLEEP APPROXIMATELY 9-10 HOURS THIS SHIFT.
[2023-06-11] MEDS: duloxetine 30 mg Capsule PO (09:04)
--- NOTE | 2023-06-11 11:11 | W.PM.NPUPNS ---
Subjective NPU Subjective: Patient presented today reporting he is continuing to feel better. We agreed that it does appear that he is having significant improvement and [facility]. He was very happy about that and reports that his medications are working well and he denied any side effects. Mental Status Exam MSE Comments: This is a tall well-nourished well-developed white male in hospital scrubs with limited grooming but appropriate eye contact. No abnormal movements except for mild psychomotor retardation. Cooperative with exam in mild distress. Speech was normal rate and volume. Mood described as better, affect slightly subdued. Thought process was more organized. Thought content: Patient denied suicidal or homicidal ideation, there were no delusions reported or noted, he denied any auditory or visual hallucinations. Attention and concentration appear to be improving and memory appeared reliable but none were formally tested. He was alert and oriented x 3. Insight and judgment were limited impulse control poor. Vitals/I&O/Wt Last Vital Signs Temp 97.4 F L 06/10/23 20:10 Pulse 81 06/11/23 06:00 Resp 16 06/11/23 06:00 BP 111/70 06/11/23 06:00 Pulse Ox 99 06/11/23 06:00 O2 Del Method Room Air 06/11/23 06:00 Weight last 48 hrs Weight 98.146 kg Data NPU 06/02/23 13:36 06/02/23 13:36 A&P Assessment and plan (1) MDD (major depressive disorder), recurrent severe, without psychosis: (2) Panic attacks: Plan 42-year-old male admitted after an overdose on Tylenol with current suicidal ideation currently on a 96-hour hold with severe depression. Patient would likely benefit from acute psychiatric treatment at this time. 1. ?Encourage individual, group and milieu therapy. 2. Recommend sober living treatment at the highest level of care to which the patient is willing to commit. 3. Continue q-15 minute checks for safety 4. Cymbalta 30mg daily for depression and anxiety. 5. Will attempt to gather collateral information. 6. 21 day hold filed. Hold granted 06/09/2023. [facility]. Involuntary Hold Information 96 Hour Hold: 96 Hour Involuntary Admission: Yes 96 Hour Hold Ending Date: 06/08/23 96 Hour Hold Ending Time: 13:13 Attestations NPU Medical Necessity Statement*: Inpatient hospitalization is medically necessary and the clinically appropriate intervention at this time.? Medications will be initiated and adjusted as clinically indicated.? The patient?s likely length of stay is 1 days.? Coding Level of Care Code Acute Code for [facility] Fwd Diagnoses MDD (major depressive disorder), recurrent severe, without psychosis F33.2 Panic attacks F41.0
[2023-06-11 14:00] VITALS: BP 115/75; PULSE 79; RESP 16; TEMP 36.5; O2SAT 98
[2023-06-11] MEDS: nicotine 4 mg lozenge MUCOUS MEM ×3 (15:00→20:36)
[2023-06-11] MEDS: hyDROXYzine 25 mg Capsule 50 MG PO (17:10)
[2023-06-11] MEDS: haloperidol 5 mg Tablet PO (20:36)
[2023-06-11] MEDS: trazodone 50 mg Tablet PO ×2 (20:36→21:34)
[2023-06-11 20:43] VITALS: BP 129/84; PULSE 80; RESP 18; TEMP 36.9; O2SAT 98
--- NOTE | 2023-06-11 21:51 | PC.NURSE ---
DENIES PAIN. DENIES SI/HI AND AVH AT THIS TIME. RATES ANXIETY 7/10 AND DEPRESSION 8/10. PT MOOD IS UPBEAT WITH BRIGHT AFFECT. PT IS EXCITED TO DISCHARGE IN AM. TRAZODONE 50 MG GIVEN FOR SLEEP AND HALDOL 5 MG FOR ANXIETY. ALL QUESTIONS ANSWERED AND SUPPORT VOICED.
[2023-06-12 06:00] VITALS: BP 109/72; PULSE 66; RESP 16; TEMP 36.4; O2SAT 96
--- NOTE | 2023-06-12 06:38 | PC.NURSE ---
PT RECEIVED PRN MEDICATIONS FOR ANXIETY AND SLEEP PROMOTION. PT RECEIVED 2 DOSES OF TRAZODONE AND 5 MY OF HALDOL. MEDICATIOINS DEEMED EFFECTIVE. PT HAD NO FURTHER COMPLAINTS OF ANXIETY AND WAS ABLE TO REST. PT SLEPT APPROXIMATELY 9-10 HOURS THIS SHIFT. PT CURRENTLY RESTING IN BED NO DISTRESS NOTED.
[2023-06-12] MEDS: duloxetine 30 mg Capsule PO (08:19)
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
[2023-06-12] MEDS: nicotine 4 mg lozenge MUCOUS MEM (10:56)
[2023-06-12 10:57] VITALS: BP 109/72; PULSE 66; RESP 16; TEMP 36.4; O2SAT 96
[2023-06-12] MEDS: hyDROXYzine 25 mg Capsule 50 MG PO (12:02)
--- NOTE | 2023-06-12 12:02 | PC.NURSE ---
PRN VISTARIL 50 MG GIVEN PO PER PT C/O STATED ANXIETY, ANXIOUS ABOUT BEING DISCHARGED TODAY
== END 2023-06-12 13:08 | disposition home or self-care (01) | DRG 918 ==
LOC: ER 14:37 → NP 06-03 08:09
PROVIDERS: Admitting Provider Psychiatry & Neurology Psychiatry; Emergency Provider Emergency Medicine; PCP Nurse Practitioner; Visit Provider Psychiatry & Neurology Psychiatry
DX: T39.1X2A Poisoning by 4-Aminophenol derivatives, intentional self-harm, initial encounter (principal); F32.9 Major depressive disorder, single episode, unspecified; F17.210 Nicotine dependence, cigarettes, uncomplicated; F41.0 Panic disorder [episodic paroxysmal anxiety]
CPT/HCPCS: 36415; 71045; 80053; 80306; 80307; 84484; 85025; 85610; 93005; 97150; 97165; 99285

== ENCOUNTER → 2023-08-07 15:48 | Outpatient (BNVA) | payer OTHER, BC, SELFPAY | PROVIDERS: PCP Nurse Practitioner; Visit Provider Nurse Practitioner | DX: R10.9 Unspecified abdominal pain (principal); Z86.19 Personal history of other infectious and parasitic diseases | CPT/HCPCS: 80053; 86705; 86706; 86709; 86803; 87340 ==

== ENCOUNTER → 2023-08-08 20:17 | Outpatient (BNVA) | payer OTHER, BC, SELFPAY | PROVIDERS: PCP Nurse Practitioner; Visit Provider Nurse Practitioner | DX: R10.9 Unspecified abdominal pain (principal); Z86.19 Personal history of other infectious and parasitic diseases | CPT/HCPCS: 87522 ==

== ENCOUNTER 2023-08-21 07:10 | Outpatient (CLI) | payer OTHER, BC, MEDICAID, SELFPAY ==
--- NOTE | 2023-08-21 07:00 | US_ITS ---
WS: [id number] Complete ABDOMINAL ULTRASOUND HISTORY: R10.9 - Unspecified abdominal pain COMPARISON: None available. Liver: 16.6 cm in length. Normal size liver and echogenicity. No bile duct dilatation or mass. Portal Vein: Normal hepatopetal flow with monophasic waveform. Gallbladder: Normally distended gallbladder with no stones or wall thickening. CBD: 0.6 cm Pancreas: Not well visualized. Right kidney: 11.8 cm x 5.8 x 5.6 cm. Cortex:1.1 cm. Normal size and echogenicity. No hydronephrosis or mass. Left kidney: 11.0 cm x 6.2 cm x 5.6 cm. Cortex: 1.4 cm. Normal size and echogenicity. No hydronephrosis or mass. Spleen: 11.4 cm. Normal size and echogenicity. Aorta and IVC: Unremarkable abdominal aorta and IVC. US/US abdomen complete* [id number] Impression: Poorly visualized pancreas. Otherwise negative.
== END 2023-08-21 07:11 | disposition home or self-care (01) ==
LOC: RAD 07:10
PROVIDERS: PCP Nurse Practitioner; Visit Provider Nurse Practitioner
DX: R10.9 Unspecified abdominal pain (principal); Z86.19 Personal history of other infectious and parasitic diseases
CPT/HCPCS: 76700

== ENCOUNTER → 2023-08-25 07:44 | Outpatient (BNVA) | payer OTHER, BC, MEDICAID, SELFPAY | PROVIDERS: PCP Nurse Practitioner; Visit Provider Family Medicine | DX: B19.20 Unspecified viral hepatitis C without hepatic coma (principal); Z11.4 Encounter for screening for human immunodeficiency virus [HIV]; Z86.19 Personal history of other infectious and parasitic diseases; Z86.010 Personal history of colon polyps; K92.1 Melena | CPT/HCPCS: 87806; 87902 ==

== ENCOUNTER 2023-10-25 11:25 | Outpatient (CLI) | payer OTHER, BC, MEDICAID, SELFPAY | END 2023-10-25 11:26 | disposition home or self-care (01) | LOC: LAB 11:25 | PROVIDERS: PCP Nurse Practitioner; Visit Provider Family Medicine | DX: B19.20 Unspecified viral hepatitis C without hepatic coma (principal) | CPT/HCPCS: 36415 ==

== ENCOUNTER → 2023-12-12 11:20 | Outpatient (BNVA) | payer OTHER, BC, SELFPAY | PROVIDERS: PCP Nurse Practitioner; Visit Provider Student in an Organized Health Care Education/Training Program | DX: B19.20 Unspecified viral hepatitis C without hepatic coma (principal) | CPT/HCPCS: 36415; 80053; 81596 ==

== ENCOUNTER 2023-12-14 05:50 | Day surgery (SDC) | payer BC, SELFPAY ==
[2023-12-14 06:05] VITALS: BP 141/90; PULSE 67; RESP 16; TEMP 36.6; O2SAT 100; BMI 24.3
[2023-12-14] MEDS: sodium chloride 0.9% 1,000 ML 30 ML IV (06:14)
--- NOTE | 2023-12-14 06:50 | ANES.PREANE2 ---
Pre-Anesthetic Assessment Height/Weight: Height 2.01 m Weight 97.976 kg Temp Pulse Resp BP Pulse Ox O2 Del Method 97.9 F 67 16 141/90 100 Room Air 12/14/23 06:05 12/14/23 06:05 12/14/23 06:05 12/14/23 06:05 12/14/23 06:05 12/14/23 06:05 Preop Diagnosis: GERD and Hx polyps Operation Date: 12/14/23 07:00 Proposed Procedures p EGD 24927, 49928, G0105, Z086.010, K21.9(Not Applicable) - Mainor Wren MD s Colonoscopy(Not Applicable) - Mainor Wren MD Was Beta Lorie taken within 24 hours: N/A Was Clonidine taken within 24 hours: N/A Last intake: Intake Last Liquid Date 12/14/23 Last Liquid Time 04:30 Last Solid Date 12/13/23 Last Solid Time 17:00 Social Tobacco Vaps. Hx IV drug abuse Exam alert, oriented x 3, clear to auscultation bilaterally and regular rate & rhythm Airway Submandibular: within normal limits Cervical ROM: within normal limits Mallampati: Class II Dentition: full History/ROS No significant history except as noted and No significant complaints Pulmonary None reported CV/HEM None reported None reported Hepatic Hepatitis GI Gastroesophageal Reflux Disease Metabolic None reported Musc/skel None reported Neuropsych None reported Anesthetic Plan ASA status: 2 Anesthesia: Anesthesia Evaluation and MAC Risk of > 500 ml blood loss (7ml/kg in children): No Medications/Allergies Home Medications Medication Instructions Recorded Confirmed Last Taken Type buspirone 5 mg tablet 5 mg PO BID 30 days #60 tabs 12/04/23 12/14/23 12/12/23 Rx Allergies Allergy/AdvReac Type Severity Reaction Status Date / Time No Known Allergies Allergy Verified 12/12/23 11:09 Current Medications Generic Name Dose Route Start Last Admin Trade Name Freq PRN Reason Stop Dose Admin Sodium Chloride 1,000 mls @ 30 mls/hr 12/14/23 06:00 12/14/23 06:14 Sodium Chloride 0.9% IV 30 mls/hr .Q24H RUPERTO Administration PFSH Anesthesia Medical History Psychiatric care Family History Father Heart disease Diabetes mellitus, type 2 Family/Other Breast cancer paternal aunt Grandfather Heart disease paternal Mother Psychiatric illness Other Atrial fibrillation Denies family history of Clotting disorder Chronic kidney disease (CKD) Thyroid disease Stroke Social History Smoking and tobacco/nicotine status: former use of tobacco/nicotine Quit status (tobacco/nicotine): has quit using Year quit tobacco: 2023 Former quit date comment: Quit 3 months ago Data Anesthesia Cardiac Studies: No Data to Display
--- NOTE | 2023-12-14 06:54 | W.PM.OPSFHP ---
Same Day Surgery H&P Indication for Procedure/HPI DATE OF PROCEDURE: December 14, 2023 CHIEF COMPLAINT/INDICATIONFOR SURGICAL PROCEDURE: history of colon polyps and abdominal pain PREOP DIAGNOSIS: GERD and Hx polyps PLANNED PROCEDURE: Operation Date: 12/14/23 07:00 Proposed Procedures p EGD 31001, 04435, G0105, Z086.010, K21.9(Not Applicable) - Mainor Wren MD s Colonoscopy(Not Applicable) - Mainor Wren MD Medications/Allergies* Allergies/Adverse Reactions Allergy/AdvReac Type Severity Reaction Status Date / Time No Known Allergies Allergy Verified 12/12/23 11:09 Current Medications: Generic Name Dose Route Start Last Admin Trade Name Freq PRN Reason Stop Dose Admin Sodium Chloride 1,000 mls @ 30 mls/hr 12/14/23 06:00 12/14/23 06:14 Sodium Chloride 0.9% IV 30 mls/hr .Q24H RUPERTO Administration Pertinent History/Comorbid Conditions* Medical History (Updated 12/04/23 @ 09:59 by Britany Sagastume MD) Psychiatric care Family History (Updated 02/09/23 @ 09:31 by Skye Rodriguez LPN) Diabetes mellitus, type 2 Father Atrial fibrillation Heart disease Father Grandfather paternal Psychiatric illness Mother Breast cancer Family/Other paternal aunt Denies family history of Clotting disorder Chronic kidney disease (CKD) Thyroid disease Stroke Social History Smoking and tobacco/nicotine status: former use of tobacco/nicotine Quit status (tobacco/nicotine): has quit using Year quit tobacco: 2023 Former quit date comment: Quit 3 months ago Pertinent Exam Findings alert, oriented x 3, clear to auscultation bilaterally and regular rate & rhythm Recommendations Surgery/Procedure today Coding Level of Care Code Acute Code for Chg Fwd
[2023-12-14 07:50] VITALS: BP 114/72; PULSE 54; RESP 20; TEMP 36.1; O2SAT 96
[2023-12-14 07:55] VITALS: BP 120/74; PULSE 52; RESP 18; O2SAT 96
[2023-12-14 08:05] VITALS: BP 125/81; PULSE 53; RESP 20; O2SAT 98
--- NOTE | 2023-12-14 08:40 | ANE.PACU2 ---
Inpatient post-anesthesia follow up: Airway intact: Yes Vital signs: Temperature 97.0 F Pulse Rate 53 Respiratory Rate 20 Blood Pressure 125/81 Pulse Oximetry 98 Oxygen Delivery Me thod Room Air Oxygen Flow Rate Fraction of Inspir ed Oxygen Hydration adequate: Yes Nausea and vomiting: No Pain level: 1 Mental status: Baseline
== END 2023-12-14 08:43 | disposition home or self-care (01) ==
PROVIDERS: PCP Nurse Practitioner; Visit Provider Surgery
PROC: 0DJ08ZZ Inspection of Upper Intestinal Tract, Via Natural or Artificial Opening Endoscopic (ICD-10-PCS; CPT 43235; principal; 2023-12-14 07:00)
PROC: 0DJD8ZZ Inspection of Lower Intestinal Tract, Via Natural or Artificial Opening Endoscopic (ICD-10-PCS; CPT 45378; 2023-12-14 07:00)
DX: Z12.11 Encounter for screening for malignant neoplasm of colon (principal); Z86.010 Personal history of colon polyps; K21.9 Gastro-esophageal reflux disease without esophagitis; Z87.891 Personal history of nicotine dependence; D12.5 Benign neoplasm of sigmoid colon; K29.50 Unspecified chronic gastritis without bleeding; K44.9 Diaphragmatic hernia without obstruction or gangrene
CPT/HCPCS: 43239; 45385; 88305; 88342; J2704; J3490; J7030

== ENCOUNTER → 2024-02-14 13:53 | Outpatient (BNVA) | payer OTHER, BC, SELFPAY | PROVIDERS: PCP Nurse Practitioner; Visit Provider Family Medicine | DX: B19.20 Unspecified viral hepatitis C without hepatic coma (principal) | CPT/HCPCS: 87522 ==

== ENCOUNTER → 2024-06-25 09:55 | Outpatient (BNVA) | payer BC, SELFPAY | PROVIDERS: PCP Nurse Practitioner; Visit Provider Student in an Organized Health Care Education/Training Program | DX: B19.20 Unspecified viral hepatitis C without hepatic coma (principal) | CPT/HCPCS: 36415; 80053; 81596; 86705; 86706; 86709; 86803; 87340; 87522 ==